=== PATIENT | male | born 1940 | race Two or more races ===

== ENCOUNTER 2022-03-23 18:23 | Inpatient (IN) | payer OTHER ==
[~2022-03-23] VITALS: Ht 175.3 cm; Wt 68.0 kg
[2022-03-23] MEDS ORDERED: LACTATED RINGER'S 1,000 ML IV ONE (19:15)
[2022-03-23] MEDS ORDERED: MORPHINE SULFATE 4 MG/ML SYR/VIAL IV ONE (20:15)
[2022-03-23] MEDS ORDERED: ONDANSETRON HCL 4 MG/2 ML VIAL IV ONE (20:15)
[2022-03-23] MEDS ORDERED: SODIUM CHLORIDE 0.9% 1,000 ML IVB ONE (20:15)
[2022-03-23 20:23] LABS: Urine Bacteria MANY /hpf (None Seen); Urine Blood 3+ /uL (Negative); Urine WBC 2447 /hpf (0 - 3); Urine WBC Clumps PRESENT /hpf (None Seen)
[2022-03-23 20:27] LABS: Urine Specific Gravity 1.012 (1.001-1.035)
[2022-03-23] MEDS ORDERED: cefTRIAXone 1GM/50ML D5W 50 ML IV ONE (21:15)
[2022-03-23] MEDS: ALPRAZolam 0.25 MG TAB PO ONE ×2 (21:32→22:00)
[2022-03-23] MEDS ORDERED: IOHEXOL 300 MG/ML 100ML BOTTLE IJ ONE (22:24)
[2022-03-23 22:30] LABS: Basophils # (auto) 0 10 ^3/uL (0-0.2); Basophils % (auto) 0.2 % (0.0-2.0); Eosinophils # (auto) 0 10 ^3/uL (0-0.8); Eosinophils % (auto) 0.1 % (0.0-7.0); Hematocrit 36.3 % (41.0-53.0); Hemoglobin 11.9 g/dL (13.5-17.5); Lymphocytes # (auto) 1.3 10 ^3/uL (0.4-5.4); Lymphocytes % (auto) 6.4 % (10.0-50.0); Mean Corpuscular Hemoglobin 31.7 pg (28.0-32.0); Mean Corpuscular Hgb Conc. 32.9 g/dL (32.0-36.0); Mean Corpuscular Volume 96.3 fL (80.0-100.0); Monocytes # (auto) 0.3 10 ^3/uL (0-1.3); Monocytes % (auto) 1.6 % (0.0-12.0); Neutrophils # (auto) 18.9 10 ^3/uL (1.6-8.6); Neutrophils % (auto) 91.7 % (37.0-80.0); Red Blood Cells 3.77 10^6/uL (4.5-5.90); Red Cell Distribution Width 13.2 % (11.8-14.3); White Blood Cell 20.6 10^3/uL (4.4-10.8)
[2022-03-23] MEDS ORDERED: LORazepam 2MG/ML-1ML VIAL IV ONE (22:30)
[2022-03-23] MEDS ORDERED: DEXTROSE (50%) 50ML SYRG IV PRN (22:45)
[2022-03-23 22:46] LABS: INR 1.1 (0.9-1.15)
[2022-03-23 22:51] LABS: Albumin 2.6 g/dL (3.4-5.0); BUN/Creatinine Ratio 16.7; Calcium 8.1 mg/dL (8.5-10.1); Magnesium 1.8 mg/dL (1.6-2.6); Potassium 4.2 mmol/L (3.5-5.1)
[2022-03-23 22:54] LABS: Bilirubin, Total 1.3 mg/dL (0.2-1.0); Lactic Acid w/Reflex 4.7 mmol/L (0.4-2.0); Total Protein 6.6 g/dL (6.4-8.2)
[2022-03-23] MEDS ORDERED: NITROGLYCERIN 0.4 MG SL TAB SL PRN (23:45)
[2022-03-23] MEDS ORDERED: MORPHINE SULFATE INJ 2 MG/ml SYRG IV PRN ×2 (23:45)
[2022-03-24] MEDS ORDERED: PIPERACILLIN-TAZOB 3.375GM 100 ML IV SCH
[2022-03-24] MEDS ORDERED: ACETAMINOPHEN 325 MG TAB PO PRN (00:30)
[2022-03-24] MEDS: PIPERACILLIN-TAZOB 2.25GM 50 ML IV SCH ×4 (00:58→18:29)
[2022-03-24] MEDS: InsuLIN REG 1unit/0.01ml Soln (100units/ml) SC SCH ×4 (00:58→18:31)
[2022-03-24] MEDS: ACCU-CHEK COMFORT CURVE STRIP VI SCH ×4 (00:58→18:24)
[2022-03-24] MEDS: ENOXAPARIN SOD 60 MG/0.6 ML SYRINGE SC SCH ×2 (01:06→21:57)
[2022-03-24] MEDS ORDERED: LACTATED RINGER'S 2,050 ML IV ONE (01:15)
[2022-03-24] MEDS ORDERED: HYDROCORTISONE SOD SUCC 100 MG/2ML INJ VIAL IV ONE (01:15)
[2022-03-24] MEDS: SODIUM CHLORIDE 0.9% 1,000 ML IV SCH ×2 (01:50→08:25)
[2022-03-24 04:37] LABS: Urine Bacteria NONE SEEN /hpf (None Seen); Urine Blood 3+ /uL (Negative); Urine WBC 2016 /hpf (0 - 3); Urine WBC Clumps PRESENT /hpf (None Seen)
[2022-03-24 07:27] LABS: Basophils # (auto) 0 10 ^3/uL (0-0.2); Eosinophils # (auto) 0 10 ^3/uL (0-0.8); Hematocrit 32.2 % (41.0-53.0); Hemoglobin 10.8 g/dL (13.5-17.5); Lymphocytes # (auto) 0.6 10 ^3/uL (0.4-5.4); Lymphocytes % (auto) 2.9 % (10.0-50.0); Mean Corpuscular Hemoglobin 31.9 pg (28.0-32.0); Mean Corpuscular Hgb Conc. 33.6 g/dL (32.0-36.0); Mean Corpuscular Volume 94.9 fL (80.0-100.0); Monocytes # (auto) 0.7 10 ^3/uL (0-1.3); Monocytes % (auto) 3.1 % (0.0-12.0); Neutrophils # (auto) 20.6 10 ^3/uL (1.6-8.6); Nucleated Red Blood Cells % 0.1 %; Red Blood Cells 3.39 10^6/uL (4.5-5.90); White Blood Cell 21.9 10^3/uL (4.4-10.8)
[2022-03-24] MEDS ORDERED: VANCOMYCIN PER PHARMACY 0 MG IV SCH (07:45)
[2022-03-24 08:15] LABS: BUN/Creatinine Ratio 17.8; Calcium 7.9 mg/dL (8.5-10.1); Potassium 3.6 mmol/L (3.5-5.1)
[2022-03-24] MEDS ORDERED: VANCOMYCIN 1GM/250ML 250 ML IV ONE (09:00)
[2022-03-24] MEDS: FINASTERIDE 5 MG TAB PO SCH (09:36)
[2022-03-24] MEDS ORDERED: ENOXAPARIN SOD 60 MG/0.6 ML SYRINGE SC SCH ×2 (10:00)
[2022-03-24] MEDS ORDERED: SODIUM CHLORIDE 0.9% 1,000 ML IV ONE (11:15)
[2022-03-24] MEDS: TAMSULOSIN HYDROCHLORIDE 0.4 MG CAP PO SCH (18:29)
[2022-03-24] MEDS ORDERED: ATORVASTATIN 20 MG TAB PO SCH (22:00)
[2022-03-24] MEDS ORDERED: TRAZ50TA2 PO (22:43)
[2022-03-24] MEDS ORDERED: BENZ100C97 PO (22:43)
[2022-03-24] MEDS ORDERED: APIX5TAB PO (22:43)
[2022-03-24] MEDS ORDERED: OXYB10TA14 (22:43)
[2022-03-24] MEDS ORDERED: LOSA-69 PO (22:43)
[2022-03-24] MEDS ORDERED: METF-371 PO (22:43)
[2022-03-24] MEDS ORDERED: TAMS1CAP25 PO (22:43)
[2022-03-24] MEDS ORDERED: ATOR-47 PO (22:43)
[2022-03-24] MEDS ORDERED: GLUC-149 (22:43)
[2022-03-24] MEDS ORDERED: CIPR500T4 PO (22:43)
[2022-03-24] MEDS ORDERED: FIN5T PO (22:43)
[2022-03-25] VITALS (8 sets, daily range): BP systolic 92–101; BP diastolic 51–64
[2022-03-25] MEDS: PIPERACILLIN-TAZOB 2.25GM 50 ML IV SCH ×4 (00:08→18:00)
[2022-03-25] MEDS: ACCU-CHEK COMFORT CURVE STRIP VI SCH ×4 (00:09→18:00)
[2022-03-25 05:20] LABS: Basophils # (auto) 0 10 ^3/uL (0-0.2); Basophils % (auto) 0.2 % (0.0-2.0); Eosinophils # (auto) 0.1 10 ^3/uL (0-0.8); Eosinophils % (auto) 0.5 % (0.0-7.0); Hematocrit 27.1 % (41.0-53.0); Hemoglobin 9.4 g/dL (13.5-17.5); Lymphocytes # (auto) 0.7 10 ^3/uL (0.4-5.4); Lymphocytes % (auto) 5.4 % (10.0-50.0); Mean Corpuscular Hemoglobin 32.9 pg (28.0-32.0); Mean Corpuscular Hgb Conc. 34.8 g/dL (32.0-36.0); Mean Corpuscular Volume 94.6 fL (80.0-100.0); Monocytes # (auto) 0.5 10 ^3/uL (0-1.3); Monocytes % (auto) 3.7 % (0.0-12.0); Neutrophils # (auto) 11.5 10 ^3/uL (1.6-8.6); Neutrophils % (auto) 90.2 % (37.0-80.0); Red Blood Cells 2.87 10^6/uL (4.5-5.90); Red Cell Distribution Width 12.9 % (11.8-14.3); White Blood Cell 12.7 10^3/uL (4.4-10.8)
[2022-03-25 05:43] LABS: BUN/Creatinine Ratio 23.9; Calcium 7.6 mg/dL (8.5-10.1); Potassium 3.1 mmol/L (3.5-5.1)
[2022-03-25] MEDS: InsuLIN REG 1unit/0.01ml Soln (100units/ml) SC SCH ×4 (05:59→18:00)
[2022-03-25] MEDS ORDERED: CEPH-510 PO (07:03)
[2022-03-25] MEDS ORDERED: SODIUM CHLORIDE 0.9% 1,000 ML IV ONE (07:15)
[2022-03-25] MEDS ORDERED: POTASSIUM CHL 20 Meq TABLET PO ONE (07:15)
[2022-03-25] MEDS: FINASTERIDE 5 MG TAB PO SCH (07:58)
[2022-03-25] MEDS ORDERED: AMOX500C2 PO (09:29)
[2022-03-25] MEDS ORDERED: VANCOMYCIN 1GM/250ML 250 ML IV ONE (11:30)
[2022-03-25] MEDS: TAMSULOSIN HYDROCHLORIDE 0.4 MG CAP PO SCH (17:58)
== END 2022-03-25 21:35 | disposition home health service (06) | DRG 690 ==
LOC: EDBD 18:23 → ER 18:25 → TELE 23:45 → OBSVTOIN 03-24 14:09 → TELE-EAST 03-24 21:06
PROVIDERS: ADMIT Hospitalist; ATTEND Hospitalist
DX: N39.0 Urinary tract infection, site not specified (principal); I69.351 Hemiplegia and hemiparesis following cerebral infarction affecting right dominant side; N13.8 Other obstructive and reflux uropathy; R31.9 Hematuria, unspecified; E11.9 Type 2 diabetes mellitus without complications; E78.5 Hyperlipidemia, unspecified; Z20.822 Contact with and (suspected) exposure to COVID-19; I10 Essential (primary) hypertension; N40.1 Benign prostatic hyperplasia with lower urinary tract symptoms; R33.8 Other retention of urine
CPT/HCPCS: 36415; 71045; 74177; 80048; 80053; 80202; 81001; 82962; 83605; 83690; 83735; 84484; 85025; 85610; 85730; 87040; 87086; 87088; 87186; 87426; 87804; 96361; 96365; 96375; G0378; J0696; J1815; J2405; J2543